=== PATIENT | female | born 1955 | race Caucasian/White ===

== ENCOUNTER 2020-12-27 11:51 | Inpatient (IN) ==
[2020-12-28 04:53] LABS: Basophils # 0.1 K/mcL (0.0-0.2); Basophils % 0.6 %; Eosinophils # 0.1 K/mcL (0.0-0.6); Eosinophils % 1.1 %; Hematocrit 38.3 % (35.3-44.9); Hemoglobin 13.8 g/dL (11.5-15.4); Immature Granulocytes % 0.7 % (0-4); Lymphocytes # 2.2 K/mcL (0.6-4.6); Lymphocytes % 22.5 %; Mean Corpuscular Hemoglobin 32.2 pg (28.0-33.3); Mean Corpuscular Volume 89.3 fL (83.0-100.0); Mean Platelet Volume 9.9 fL (9.4-12.4); Monocytes # 0.9 K/mcL (0.0-1.3); Monocytes % 9.5 %; Neutrophils # 6.4 K/mcL (1.6-8.9); Platelet Count 218 K/mcL (140-400); Red Blood Count 4.29 M/mcL (3.82-4.97); Red Cell Distribution Width 11.4 % (11.5-14.5); Segmented Neutrophils % 65.6 %; White Blood Count 9.7 K/mcL (4.3-11.1)
[2020-12-28 05:08] LABS: BUN/Creatinine Ratio 37 (6-26); Blood Urea Nitrogen 28 mg/dL (8-23); Calcium 9.3 mg/dL (8.6-10.3); Carbon Dioxide 21 mEq/L (23-29); Chloride 103 mEq/L (98-107); Glucose 164 mg/dL (70-105); Osmolality,Calculated 283 (280-300); Potassium 3.7 mEq/L (3.5-5.1); Sodium 132 mEq/L (136-145); eGFR For African Americans > 60 (> 60); eGFR For Non-African Americans > 60 (> 60)
[2020-12-28] MEDS: aMILoride 5 MG TABLET PO SCH (08:37)
[2020-12-28] MEDS: Valsartan 160 MG TABLET PO SCH (08:37)
[2020-12-28] MEDS: cloNIDine HCL 0.1 MG TABLET PO SCH ×3 (08:37→19:40)
[2020-12-28] MEDS: Aspirin 325 MG TABLET PO SCH (08:37)
[2020-12-28] MEDS: Metoprolol 100 MG TABLET PO SCH ×2 (08:38→19:40)
[2020-12-28] MEDS ORDERED: *HR* LORazepam 0.5 MG TABLET PO PRN (20:01)
[2020-12-29] MEDS: amLODIPine 5 MG TABLET PO SCH ×2 (00:35→08:21)
[2020-12-29] MEDS: Valsartan 160 MG TABLET PO SCH (08:21)
[2020-12-29] MEDS: Metoprolol 100 MG TABLET PO SCH ×2 (08:21→20:02)
[2020-12-29] MEDS: aMILoride 5 MG TABLET PO SCH (08:21)
[2020-12-29] MEDS: cloNIDine HCL 0.1 MG TABLET PO SCH ×3 (08:21→20:02)
[2020-12-29] MEDS: Aspirin 325 MG TABLET PO SCH (08:21)
[2020-12-30] MEDS: Valsartan 160 MG TABLET PO SCH (08:29)
[2020-12-30] MEDS: cloNIDine HCL 0.1 MG TABLET PO SCH ×3 (08:29→20:00)
[2020-12-30] MEDS: amLODIPine 5 MG TABLET PO SCH (08:29)
[2020-12-30] MEDS: aMILoride 5 MG TABLET PO SCH (08:29)
[2020-12-30] MEDS: Aspirin 325 MG TABLET PO SCH (08:29)
[2020-12-30] MEDS: Metoprolol 100 MG TABLET PO SCH ×2 (08:29→20:00)
[2020-12-30] MEDS: *HR* Enoxaparin 40 MG/0.4 ML SYRINGE SQ SCH (16:25)
[2020-12-31] MEDS: *HR* Enoxaparin 40 MG/0.4 ML SYRINGE SQ SCH (04:49)
[2020-12-31] MEDS: Metoprolol 100 MG TABLET PO SCH ×2 (08:09→20:10)
[2020-12-31] MEDS: Valsartan 160 MG TABLET PO SCH (08:09)
[2020-12-31] MEDS: Aspirin 325 MG TABLET PO SCH (08:10)
[2020-12-31] MEDS: amLODIPine 5 MG TABLET PO SCH (08:10)
[2020-12-31] MEDS: aMILoride 5 MG TABLET PO SCH (08:10)
[2020-12-31] MEDS: cloNIDine HCL 0.1 MG TABLET PO SCH ×3 (08:10→20:10)
[2021-01-01] MEDS: *HR* Enoxaparin 40 MG/0.4 ML SYRINGE SQ SCH (04:20)
[2021-01-01] MEDS: cloNIDine HCL 0.1 MG TABLET PO SCH ×3 (08:23→19:53)
[2021-01-01] MEDS: Metoprolol 100 MG TABLET PO SCH ×2 (08:23→19:53)
[2021-01-01] MEDS: Valsartan 160 MG TABLET PO SCH (08:23)
[2021-01-01] MEDS: Aspirin 325 MG TABLET PO SCH (08:24)
[2021-01-01] MEDS: aMILoride 5 MG TABLET PO SCH (08:24)
[2021-01-01] MEDS: amLODIPine 5 MG TABLET PO SCH (08:24)
[2021-01-02] MEDS: *HR* Enoxaparin 40 MG/0.4 ML SYRINGE SQ SCH (05:35)
[2021-01-02 06:48] LABS: Hematocrit 33.4 % (35.3-44.9); Hemoglobin 11.8 g/dL (11.5-15.4); Mean Corpuscular HGB Conc 35.3 g/dL (31.6-35.5); Mean Corpuscular Hemoglobin 31.5 pg (28.0-33.3); Mean Corpuscular Volume 89.1 fL (83.0-100.0); Mean Platelet Volume 10.3 fL (9.4-12.4); Platelet Count 192 K/mcL (140-400); Red Blood Count 3.75 M/mcL (3.82-4.97); White Blood Count 7.7 K/mcL (4.3-11.1)
[2021-01-02] MEDS: Aspirin 325 MG TABLET PO SCH (07:59)
[2021-01-02] MEDS: Valsartan 160 MG TABLET PO SCH (07:59)
[2021-01-02] MEDS: aMILoride 5 MG TABLET PO SCH (07:59)
[2021-01-02] MEDS: amLODIPine 5 MG TABLET PO SCH (08:00)
[2021-01-02] MEDS: Metoprolol 100 MG TABLET PO SCH ×2 (08:00→20:02)
[2021-01-02] MEDS: cloNIDine HCL 0.1 MG TABLET PO SCH ×3 (08:00→20:03)
[2021-01-02 11:50] LABS: BUN/Creatinine Ratio 21 (6-26); Blood Urea Nitrogen 13 mg/dL (8-23); Calcium 9.1 mg/dL (8.6-10.3); Carbon Dioxide 23 mEq/L (23-29); Chloride 103 mEq/L (98-107); Glucose 264 mg/dL (70-105); Magnesium 1.9 mg/dL (1.6-2.6); Osmolality,Calculated 287 (280-300); Potassium 4.7 mEq/L (3.5-5.1); Sodium 134 mEq/L (136-145); eGFR For African Americans > 60 (> 60); eGFR For Non-African Americans > 60 (> 60)
[2021-01-02 13:12] LABS: Estimated Average Glucose 166 mg/dl; Hemoglobin A1C 7.4 %
[2021-01-03] MEDS: *HR* Enoxaparin 40 MG/0.4 ML SYRINGE SQ SCH (04:44)
[2021-01-03] MEDS: Valsartan 160 MG TABLET PO SCH (09:44)
[2021-01-03] MEDS: Aspirin 325 MG TABLET PO SCH (09:44)
[2021-01-03] MEDS: cloNIDine HCL 0.1 MG TABLET PO SCH ×3 (09:44→19:36)
[2021-01-03] MEDS: amLODIPine 5 MG TABLET PO SCH (09:44)
[2021-01-03] MEDS: Metoprolol 100 MG TABLET PO SCH ×2 (09:45→19:35)
[2021-01-03] MEDS: aMILoride 5 MG TABLET PO SCH (09:45)
[2021-01-04] MEDS: *HR* Enoxaparin 40 MG/0.4 ML SYRINGE SQ SCH (05:08)
[2021-01-04] MEDS: aMILoride 5 MG TABLET PO SCH (07:57)
[2021-01-04] MEDS: Valsartan 160 MG TABLET PO SCH (07:57)
[2021-01-04] MEDS: Metoprolol 100 MG TABLET PO SCH ×2 (07:57→20:00)
[2021-01-04] MEDS: cloNIDine HCL 0.1 MG TABLET PO SCH ×3 (07:58→20:01)
[2021-01-04] MEDS: Aspirin 325 MG TABLET PO SCH (07:58)
[2021-01-04] MEDS: amLODIPine 5 MG TABLET PO SCH (07:58)
[2021-01-04] MEDS ORDERED: *HR* Dextrose 50 % in Water (Syg) 50 ML SYRINGE IVP PRN (13:30)
[2021-01-04] MEDS ORDERED: Dextrose Gel 15 GM/37.5 ML TUBE PO PRN ×2 (13:30)
[2021-01-04] MEDS ORDERED: D5% in Water 1,000 ML IVC PRN (13:30)
[2021-01-04] MEDS: Insulin LISPRO 300 UNITS/3 ML VIAL SUBQ SCH ×2 (17:42→20:01)
[2021-01-04] MEDS: *HR* Metformin 500 MG TABLET PO SCH (17:42)
[2021-01-05] MEDS: *HR* Enoxaparin 40 MG/0.4 ML SYRINGE SQ SCH (05:58)
[2021-01-05] MEDS: amLODIPine 5 MG TABLET PO SCH (07:26)
[2021-01-05] MEDS: aMILoride 5 MG TABLET PO SCH (07:26)
[2021-01-05] MEDS: *HR* Metformin 500 MG TABLET PO SCH ×2 (07:26→16:41)
[2021-01-05] MEDS: Metoprolol 100 MG TABLET PO SCH ×2 (07:26→20:25)
[2021-01-05] MEDS: cloNIDine HCL 0.1 MG TABLET PO SCH ×3 (07:26→20:25)
[2021-01-05] MEDS: Valsartan 160 MG TABLET PO SCH (07:26)
[2021-01-05] MEDS: Aspirin 325 MG TABLET PO SCH (07:26)
[2021-01-05] MEDS: Insulin LISPRO 300 UNITS/3 ML VIAL SUBQ SCH ×4 (08:09→21:55)
[2021-01-06] MEDS: *HR* Enoxaparin 40 MG/0.4 ML SYRINGE SQ SCH (07:36)
[2021-01-06] MEDS: aMILoride 5 MG TABLET PO SCH (07:38)
[2021-01-06] MEDS: Insulin LISPRO 300 UNITS/3 ML VIAL SUBQ SCH ×4 (07:38→21:12)
[2021-01-06] MEDS: Metoprolol 100 MG TABLET PO SCH ×2 (07:39→21:12)
[2021-01-06] MEDS: Valsartan 160 MG TABLET PO SCH (07:39)
[2021-01-06] MEDS: Aspirin 325 MG TABLET PO SCH (07:39)
[2021-01-06] MEDS: cloNIDine HCL 0.1 MG TABLET PO SCH ×3 (07:39→21:12)
[2021-01-06] MEDS: *HR* Metformin 500 MG TABLET PO SCH ×2 (07:39→16:40)
[2021-01-06] MEDS: amLODIPine 5 MG TABLET PO SCH (07:39)
[2021-01-07] MEDS: *HR* Enoxaparin 40 MG/0.4 ML SYRINGE SQ SCH (05:10)
[2021-01-07 07:38] VITALS: BP 135/71; PULSE 87; RESP 17; TEMP 98.3; O2SAT 97
[2021-01-07] MEDS: aMILoride 5 MG TABLET PO SCH (07:58)
[2021-01-07] MEDS: Aspirin 325 MG TABLET PO SCH (07:59)
[2021-01-07] MEDS: Valsartan 160 MG TABLET PO SCH (07:59)
[2021-01-07] MEDS: amLODIPine 5 MG TABLET PO SCH (07:59)
[2021-01-07] MEDS: cloNIDine HCL 0.1 MG TABLET PO SCH (07:59)
[2021-01-07] MEDS: *HR* Metformin 500 MG TABLET PO SCH (07:59)
[2021-01-07] MEDS: Metoprolol 100 MG TABLET PO SCH (07:59)
[2021-01-07] MEDS: Insulin LISPRO 300 UNITS/3 ML VIAL SUBQ SCH ×2 (08:00→12:25)
== END 2021-01-07 14:20 | disposition home health service (06) | DRG 57 ==
LOC: INPGRE 19:30
PROVIDERS: ADMIT Family Medicine; ATTEND Family Medicine